=== PATIENT | male | born 1985 | race African-American/Black ===

== ENCOUNTER 2017-04-24 10:25 | Emergency (ER) | payer OTHER ==
[2017-04-24 10:38] VITALS: BP 121/73; PULSE 65; TEMP 98.3; BMI 24.4
[2017-04-24] MEDS ORDERED: FLUORESCEIN NA 1 EA STRIP OS ONE (10:54)
[2017-04-24] MEDS ORDERED: TETRACAINE 0.5% HCL 0.6ML DROPPER.BOTTLE OS ONE (10:54)
[2017-04-24] MEDS ORDERED: FLUORESCEIN NA 1 EA STRIP ONE (10:59)
[2017-04-24] MEDS ORDERED: TETRACAINE 0.5% OPHTH SOLN 2 ML BOTTLE ONE (10:59)
[2017-04-24] MEDS ORDERED: GENTAMICIN SULFATE 0.3% OPHTHALMIC (EYE DROPS) 5ML BOTTLE OD ONE (11:17)
[2017-04-24] MEDS ORDERED: GENTAMICIN SULFATE 0.3% OPHTHALMIC (EYE DROPS) 5ML BOTTLE ONE (11:20)
--- NOTE | 2017-04-24 11:21 | PDOC ---
History of Present Illness - General Chief Complaint: Eye Problem Stated Complaint: FORIEGN BODY TO LEFT EYE Time Seen by Provider: 04/24/17 10:54 - History of Present Illness Initial Comments: 04/24/17 11:22 Chief complaint: Irritation and redness left eye History of present illness: Patient was working on a ceiling yesterday, foreign material blew into his left eye. Today he complains of mild irritation and redness. Review of systems: Denies blurred vision, faisal pain, discharge or crusting. Remainder systems reviewed and negative Past medical history: Healthy male except for mild asthma which is controlled on an inhaler and which has not resulted in ER visits, hospitalizations, or necessitated steroid use in the past. Social history: No tobacco alcohol or nonprescription drugs fully active and without disability Family history reviewed and noncontributory including early coronary artery disease, metabolic disease including diabetes, neurological or ophthalmic disease Physical exam: Alert and oriented 3, well-developed well-nourished, no acute distress, cheerful and cooperative Afebrile, vital signs normal Left eye: Visual acuity intact at 20/20 bilaterally. Pupil 4 mm, round and reactive to light and accommodation. EOMs full. Visual maldonado intact to confrontation. Conjunctiva mildly injected laterally without limbal flush. Anterior chamber clear. Fundus benign. No uptake of stain with fluorescein. No foreign bodies visualized Impression: Probable superficial abrasion of the conjunctiva. The cornea is clear. Vision is not affected Plan: Antibiotic drops for 3 days. Recheck tag maker if symptoms persist. Patient fully ambulatory and in no discomfort upon discharge to follow-up as directed Past History - Past Medical History Allergies/Adverse Reactions: Allergies Allergy/AdvReac Type Severity Reaction Status Date / Time No Known Allergies Allergy Verified 04/24/17 10:26 Home Medications: Ambulatory Orders NK [No Known Home Medication] 04/24/17 Asthma: Yes - Immunization History Immunization Up to Date: No - Psycho/Social/Smoking Cessation Hx Anxiety: No Suicidal Ideation: No Smoking History: Never smoked Information on smoking cessation initiated: No Hx Alcohol Use: Yes (SOCIAL) Drug/Substance Use Hx: No Substance Use Type: Alcohol *Physical Exam - Vital Signs Last Vital Signs Temp Pulse Resp BP Pulse Ox 98.3 F 65 16 121/73 100 04/24/17 10:26 04/24/17 10:26 04/24/17 10:26 04/24/17 10:26 04/24/17 10:26 ED Treatment Course - Medications Given in the ED: ED Medications Discontinued Medications Generic Name Dose Route Start Last Admin Trade Name Estefania PRN Reason Stop Dose Admin Fluorescein Sodium 1 ea 04/24/17 10:54 04/24/17 10:59 Fluorets - OS 04/24/17 10:55 1 ea ONCE ONE Administration Tetracaine HCl 1 drop 04/24/17 10:54 04/24/17 10:59 Tetravisc 0.5% Eye Drops - OS 04/24/17 10:55 1 drop ONCE ONE Administration *DC/Admit/Observation/Transfer Diagnosis at time of Disposition: Eye injury, superficial Qualifiers: Encounter type: initial encounter Laterality: left Qualified Code(s): S05.8X2A - Other injuries of left eye and orbit, initial encounter - Discharge Dispostion Disposition: HOME Condition at time of disposition: Stable Admit: No - Referrals Referrals: Kashif Davis MD [Staff Physician] - 2 Days - Patient Instructions Additional Instructions: Warm compresses, eye drops 4 times daily as directed. If redness or irritation persists more than 1-2 days, see eye doctor for further evaluation and treatment as directed. If condition worsens or vision deteriorates, return to ER immediately. - Post Discharge Activity Work/School Note: Back to Work
== END 2017-04-24 11:29 | disposition home or self-care (01) ==
LOC: FER 10:25
DX: S05.8X2A Other injuries of left eye and orbit, initial encounter (principal); X58.XXXA Exposure to other specified factors, initial encounter; Y93.89 Activity, other specified; Y92.9 Unspecified place or not applicable; Y99.0 Civilian activity done for income or pay; J45.909 Unspecified asthma, uncomplicated
CPT/HCPCS: 99281-25

== ENCOUNTER 2017-07-15 07:56 | Day surgery (SDC) | payer OTHER ==
--- NOTE | 2017-07-15 08:47 | PDOC ---
History of Present Illness <Akilah Powers - Last Filed: 07/15/17 09:55> - General History Source: Patient Exam Limitations: No Limitations - History of Present Illness Initial Comments: 07/15/17 8:33 came for evaluation of left shoulder abscess / states is progressively worsened over the past 2 weeks. 07/15/17 09:33 Upon further evaluation and discussion, patient revealed prescription written by Dr. Young LANGE indicating patient's arrival to the emergency department and request for Dr. LANGE to be notified. After notification, stated patient was to come to emergency department for preop testing and preparation for surgical excision of this abscess. Patient was moved to the main emergency department, and Dr Black Occurred: reports: this morning Severity: reports: mild Pain Location: reports: none, upper extremity Modifying Factors: improves with: None Loss of Consciousness: no loss of consciousness <Ana Ferreira - Last Filed: 07/15/17 12:37> - General Chief Complaint: Abscess Boil Stated Complaint: ABCESS TO LEFT SHOULDER Time Seen by Provider: 07/15/17 08:24 Past History <Akilah Powers - Last Filed: 07/15/17 09:55> - Travel Traveled outside of the country in the last 30 days: No Close contact w/someone who was outside of country & ill: No - Past Medical History Asthma: Yes COPD: No - Immunization History Immunization Up to Date: No - Suicide/Smoking/Psychosocial Hx Smoking History: Never smoked Have you smoked in the past 12 months: No Information on smoking cessation initiated: No Hx Alcohol Use: Yes (SOCIAL) Drug/Substance Use Hx: No Substance Use Type: Alcohol <Ana Ferreira - Last Filed: 07/15/17 12:37> - Past Medical History Allergies/Adverse Reactions: Allergies Allergy/AdvReac Type Severity Reaction Status Date / Time No Known Allergies Allergy Verified 07/15/17 07:58 Home Medications: Ambulatory Orders NK [No Known Home Medication] 04/24/17 Review of Systems - Review of Systems Able to Perform ROS?: Yes Is the patient limited Uzbek proficient: Yes Constitutional: Yes: Symptoms Reported, See HPI, Fever, Malaise HEENTM: No: Symptoms Reported Respiratory: Yes: See HPI. No: Symptoms reported Integumentary: Yes: Symptoms Reported, See HPI, Lesions, Other <Ana Ferreira - Last Filed: 07/15/17 12:37> *Physical Exam - Vital Signs Last Vital Signs Temp Pulse Resp BP Pulse Ox 98.6 F 80 17 113/62 100 07/15/17 07:58 07/15/17 07:58 07/15/17 07:58 07/15/17 07:58 07/15/17 07:58 <Akilah Powers - Last Filed: 07/15/17 09:55> - Vital Signs Last Vital Signs Temp Pulse Resp BP Pulse Ox 98.6 F 80 17 113/62 100 07/15/17 07:58 07/15/17 07:58 07/15/17 07:58 07/15/17 07:58 07/15/17 07:58 <Ana Ferreira - Last Filed: 07/15/17 12:37> ED Treatment Course - Medications Given in the ED: ED Medications Discontinued Medications Generic Name Dose Route Start Last Admin Trade Name Estefania PRN Reason Stop Dose Admin Ibuprofen 600 mg 07/15/17 08:48 07/15/17 09:32 Motrin - PO 07/15/17 08:49 600 mg ONCE ONE Administration <Akilah Powers - Last Filed: 07/15/17 09:55> - LABORATORY CBC & Chemistry Diagram: 07/15/17 09:20 07/15/17 09:20 <Ana Ferreira - Last Filed: 07/15/17 12:37> *DC/Admit/Observation/Transfer - Discharge Dispostion Admit: Yes - Attestations Physician Attestion: 07/15/17 09:57 I, Dr. Akilah Powers MD, attest that this document has been prepared under my direction and personally reviewed by me in its entirety. I further attest, that it accurately reflects all work, treatment, procedures and medical decision -making performed by me. <Akilah Powers - Last Filed: 07/15/17 09:55> <Ana Ferreira - Last Filed: 07/15/17 12:37> Diagnosis at time of Disposition: Cyst - Discharge Dispostion Condition at time of disposition: Stable
[2017-07-15] MEDS ORDERED: IBUPROFEN 600 MG TABLET (FP) PO ONE ×2 (08:48→09:28)
[2017-07-15 10:11] LABS: BASOPHIL 0.8 % (0-2.0); EOSINOPHIL 1.9 % (0-4.5); MCH 27.4 pg (25.7-33.7); MCHC 33.4 g/dl (32.0-35.9); MEAN CELL VOLUME 82.1 fl (80-96); MEAN PLT VOLUME 6.9 fl (7.5-11.1); NEUTROPHILS 64.5 % (42.8-82.8); PLATELET COUNT 320 K/MM3 (134-434); RDW 14.1 % (11.9-15.9); WHITE BLOOD COUNT 9.2 K/mm3 (4.0-10.0)
--- NOTE | 2017-07-15 10:15 | PDOC ---
History of Present Illness <Akilah Powers - Last Filed: 07/15/17 10:15> - General History Source: Patient Exam Limitations: No Limitations - History of Present Illness Initial Comments: 07/15/17 10:15 32 y/o M with a PMHx of asthma, COPD presents to the ED with a right shoulder cyst that requires surgical removal. Cyst had drained a few weeks ago, but remains very painful and per Dr. Morales, needs removal in the OR. Patient was sent through the ER to the OR because of insurance issues. Pt reports chills last night but otherwise denies fevers, chest pain, sob, abd pain, n/v/d, weakness, headaches. <Aviva Zarate - Last Filed: 07/15/17 10:17> - General Chief Complaint: Abscess Boil Stated Complaint: ABCESS TO LEFT SHOULDER Time Seen by Provider: 07/15/17 08:24 Past History - Past Medical History Asthma: Yes COPD: No - Immunization History Immunization Up to Date: No - Suicide/Smoking/Psychosocial Hx Smoking History: Never smoked Have you smoked in the past 12 months: No Information on smoking cessation initiated: No Hx Alcohol Use: Yes (SOCIAL) Drug/Substance Use Hx: No Substance Use Type: Alcohol <Akilah Powers - Last Filed: 07/15/17 10:15> <Aviva Zarate - Last Filed: 07/15/17 10:17> - Past Medical History Allergies/Adverse Reactions: Allergies Allergy/AdvReac Type Severity Reaction Status Date / Time No Known Allergies Allergy Verified 07/15/17 07:58 Home Medications: Ambulatory Orders NK [No Known Home Medication] 04/24/17 Review of Systems - Review of Systems Is the patient limited Greenlandic proficient: Yes <Akilah Powers - Last Filed: 07/15/17 10:15> - Review of Systems Comments:: 07/15/17 10:16 GENERAL/CONSTITUTIONAL: +chills. No fever. No weakness. HEAD, EYES, EARS, NOSE AND THROAT: No change in vision. No ear pain or discharge. No sore throat. GASTROINTESTINAL: No nausea, vomiting, diarrhea or constipation. GENITOURINARY: No dysuria, frequency, or change in urination. CARDIOVASCULAR: No chest pain or shortness of breath. RESPIRATORY: No cough, wheezing, or hemoptysis. MUSCULOSKELETAL: No joint or muscle swelling or pain. No neck or back pain. SKIN: (+) right shoulder cyst. No rash NEUROLOGIC: No headache, vertigo, loss of consciousness, or change in strength/ sensation. ENDOCRINE: No increased thirst. No abnormal weight change. HEMATOLOGIC/LYMPHATIC: No anemia, easy bleeding, or history of blood clots. ALLERGIC/IMMUNOLOGIC: No hives or skin allergy. <Aviva Zarate - Last Filed: 07/15/17 10:17> *Physical Exam - Vital Signs Last Vital Signs Temp Pulse Resp BP Pulse Ox 98.6 F 80 17 113/62 100 07/15/17 07:58 07/15/17 07:58 07/15/17 07:58 07/15/17 07:58 07/15/17 07:58 <Akilah Powers - Last Filed: 07/15/17 10:15> - Vital Signs Last Vital Signs Temp Pulse Resp BP Pulse Ox 98.6 F 80 17 113/62 100 07/15/17 07:58 07/15/17 07:58 07/15/17 07:58 07/15/17 07:58 07/15/17 07:58 - Physical Exam Comments: 07/15/17 10:16 GENERAL: Awake, alert, and fully oriented, in no acute distress HEAD: No signs of trauma EYES: PERRLA, EOMI, sclera anicteric, conjunctiva clear ENT: Auricles normal inspection, hearing grossly normal, nares patent, oropharynx clear without exudates. Moist mucosa NECK: Normal ROM, supple, no lymphadenopathy, JVD, or masses LUNGS: Breath sounds equal, clear to auscultation bilaterally. No wheezes, and no crackles HEART: Regular rate and rhythm, normal S1 and S2, no murmurs, rubs or gallops ABDOMEN: Soft, nontender, normoactive bowel sounds. No guarding, no rebound. No masses EXTREMITIES: Normal range of motion, no edema. No clubbing or cyanosis. No cords, erythema. BACK: No midline spinal tenderness in cervical/thoracic/lumbar region NEUROLOGICAL: Normal speech, cranial nerves intact, negative pronator drift, 5/ 5 strength in all 4 extremities, normal sensation to light touch in all 4 extremities, normal cerebellar exam, normal gait, normal reflexes and tone SKIN: Round circumscribed 2x2 cm cyst with sebaceous material exiting from the cyst. +tenderness. No erythema, warmth. Otherwise, warm, dry, normal turgor, no rashes or lesions noted. <Aviva Zarate - Last Filed: 07/15/17 10:17> ED Treatment Course - LABORATORY CBC & Chemistry Diagram: 07/15/17 09:20 07/15/17 09:20 - ADDITIONAL ORDERS Additional order review: 07/15/17 09:20 RBC 5.15 MCV 82.1 MCHC 33.4 RDW 14.1 MPV 6.9 L Neutrophils % 64.5 Lymphocytes % 27.0 Monocytes % 5.8 Eosinophils % 1.9 Basophils % 0.8 - Medications Given in the ED: ED Medications Discontinued Medications Generic Name Dose Route Start Last Admin Trade Name Freq PRN Reason Stop Dose Admin Ibuprofen 600 mg 07/15/17 08:48 07/15/17 09:32 Motrin - PO 07/15/17 08:49 600 mg ONCE ONE Administration <Akilah Powers - Last Filed: 07/15/17 10:15> - LABORATORY CBC & Chemistry Diagram: 07/15/17 09:20 07/15/17 09:20 - ADDITIONAL ORDERS Additional order review: 07/15/17 09:20 RBC 5.15 MCV 82.1 MCHC 33.4 RDW 14.1 MPV 6.9 L Neutrophils % 64.5 Lymphocytes % 27.0 Monocytes % 5.8 Eosinophils % 1.9 Basophils % 0.8 - Medications Given in the ED: ED Medications Discontinued Medications Generic Name Dose Route Start Last Admin Trade Name Freq PRN Reason Stop Dose Admin Ibuprofen 600 mg 07/15/17 08:48 07/15/17 09:32 Motrin - PO 07/15/17 08:49 600 mg ONCE ONE Administration <Aviva Zarate - Last Filed: 07/15/17 10:17> *DC/Admit/Observation/Transfer - Discharge Dispostion Decision to Admit order Date/Time: Decision to Admit Order Category Date Time Status Decision to Admit to Hospital Routine Admission 07/15/17 09:57 Active <Akilah Powers - Last Filed: 07/15/17 10:15> - Attestations Scribe Attestion: 11/07/17 10:17 Documentation prepared by Aviva Zarate, acting as medical office worker for Akilah Powers MD. <Aviva Zarate - Last Filed: 07/15/17 10:17> Diagnosis at time of Disposition: Cyst - Discharge Dispostion Condition at time of disposition: Stable - Referrals Referrals: Niranjan Perez MD [Primary Care Provider] - - Patient Instructions - Post Discharge Activity
[2017-07-15 10:31] LABS: ALBUMIN 4.3 g/dl (3.4-5.0); ANION GAP 5 (8-16); BILIRUBIN,TOTAL 0.6 mg/dL (0.2-1.0); CALCIUM 8.7 mg/dL (8.5-10.1); CO2 30 mmol/L (21-32); CREATININE 0.9 mg/dL (0.7-1.3); GLUCOSE,RANDOM 97 mg/dL (74-106); SGOT/AST 15 U/L (15-37); SGPT/ALT 20 U/L (12-78)
[2017-07-15 10:32] LABS: ALK PHOS 82 U/L (45-117)
--- NOTE | 2017-07-15 10:47 | CONSULT ---
Consult Consult Specialty:: Surgery Reason for Consultation:: Left back/trapezius exophytic mass with pain and discharge - History of Present Illness History of Present Illness: 32 male presents to ER for left back/trapezius exophytic mass with pain and discharge Mass present x 1 month Pain worsened Had discharge from the mass prior - History Source History Provided By: Patient Limitations to Obtaining History: No Limitations - Alcohol/Substance Use Hx Alcohol Use: Yes (SOCIAL) - Smoking History Smoking history: Never smoked Have you smoked in the past 12 months: No Home Medications - Allergies Allergies/Adverse Reactions: Allergies Allergy/AdvReac Type Severity Reaction Status Date / Time No Known Allergies Allergy Verified 07/15/17 07:58 - Home Medications Home Medications: Ambulatory Orders NK [No Known Home Medication] 04/24/17 Family Disease History - Family Disease History Family History: Unremarkable Review of Systems - Review of Systems Constitutional: denies: Chills, Fever HENT: reports: No Symptoms Neck: reports: No Symptoms Cardiovascular: denies: Chest Pain Respiratory: denies: Cough Gastrointestinal: denies: Abdominal Pain Neurological: denies: Change in LOC Pain Intensity: 3 Physical Exam Vital Signs: Vital Signs Temperature 98.6 F 07/15/17 07:58 Pulse Rate 80 07/15/17 07:58 Respiratory Rate 17 07/15/17 07:58 Blood Pressure 113/62 07/15/17 07:58 O2 Sat by Pulse Oximetry (%) 100 07/15/17 07:58 Constitutional: Yes: Calm Neck: Yes: WNL Cardiovascular: Yes: Regular Rate and Rhythm Respiratory: Yes: CTA Bilaterally Gastrointestinal: Yes: Soft. No: Tenderness Musculoskeletal: Yes: Other (Left back/trapezius exophytic mass + tender No erythema + some brownish discharge) Neurological: Yes: Alert, Oriented Labs: CBC, BMP 07/15/17 09:20 07/15/17 09:20 Problem List - Problems (1) Mass on back Code(s): R22.2 - LOCALIZED SWELLING, MASS AND LUMP, TRUNK Assessment/Plan Left back/trapezius exophytic mass with pain and discharge For excision Possible drainage
[2017-07-15 10:49] LABS: INR 1.1 (0.82-1.09); PROTHROMBIN TIME (PATIENT) 12.4 SEC (9.98-11.88)
[2017-07-15 10:53] LABS: ACTIVATED PTT 35.1 SECONDS (26.9-34.4)
[2017-07-15 12:07] VITALS: BMI 24.0
[2017-07-15] MEDS ORDERED: MIDAZOLAM HCL 2 MG/2 ML SINGLE DOSE VIAL ONE ×2 (14:15→14:36)
[2017-07-15] MEDS ORDERED: LIDOCAINE 1%/EPI 1:100000 (50 ML MULTI DOSE VIAL) INF ONE ×2 (14:37)
[2017-07-15] MEDS ORDERED: ceFAZolin SODIUM 1 GM VIAL ONE (14:40)
[2017-07-15] MEDS ORDERED: POVIDONE-IODINE OINTMENT 10% - 28.4 GM TUBE ONE (14:56)
[2017-07-15] MEDS ORDERED: POVIDONE-IODINE OINTMENT 10% - 28.4 GM TUBE TP ONE (14:57)
--- NOTE | 2017-07-15 15:03 | OP ---
Operative Note - Note: Operative Date: 07/15/17 Pre-Operative Diagnosis: Left back/trapezius mass Operation: Excision of left trapezius/back mass Post-Operative Diagnosis: Same as Pre-op Surgeon: Young Morales Anesthesia: Local, MAC Specimens Removed: Left back/trapezius mass Estimated Blood Loss (mls): 5 Operative Report Dictated: Yes
[2017-07-15 15:45] VITALS: TEMP 98.9
[2017-07-15 16:36] VITALS: BP 143/65; PULSE 66
--- NOTE | 2017-07-15 19:58 | OP ---
DATE OF OPERATION: 07/15/2017 SURGEON: Samantha Morales M.D. PREOPERATIVE DIAGNOSIS: Left back/trapezius mass. POSTOPERATIVE DIAGNOSIS: Left back/trapezius mass. PROCEDURE: Excision of left trapezius/back mass. Size is approximately 3 cm x 3 cm in size. Mass is exophytic with brownish drainage coming from it. ANESTHESIA: MAC/local. REASON FOR THE PROCEDURE: This is a 32-year-old male who presents to the ER with an exophytic painful left trapezius/back mass. Because of this, he was consented for an excision of the left trapezius/back mass. Risks and benefits of the procedure were explained. These included bleeding, infection, injury to surrounding structures including nerve injury, vessel injury, muscle injury, other surrounding structures, wound dehiscence, prolonged wound healing, SC, DVT, PE, some of the complications. He understood and signed informed consent. DESCRIPTION OF PROCEDURE: Patient is placed in the right lateral decubitus position. The area was prepped and draped in the usual sterile fashion. Timeout was performed. MAC was given by anesthesia, local lidocaine with epinephrine was injected in the area. An elliptical incision was made around the exophytic mass. The mass was circumferentially dissected and transected at the base, sent off the field for both pathology as well as microbiology and culture. The wound was irrigated, hemostasis achieved, flaps were created in order to try and reapproximate the wound, 3-0 Vicryl was used to reapproximate the deep dermal layer, and 3-0 nylons were used in a horizontal mattress fashion to reapproximate the skin. Dressing was applied, patient tolerated the procedure well and was transferred to recovery room in stable condition. SAMANTHA MORALES M.D. [id number]
--- NOTE | 2017-07-17 13:09 | PATH ---
Surgical Pathology Report Patient Name: DARYL JUSTIN [facility]. Rec. #: [id number] /Age/Gender: 1985 (Age: 32) / M Account: [id number] Location: AMBULATORY SURG Taken: 07/15/2017 Received: 07/16/2017 Reported: 07/17/2017 Physicians: Young Morales M.D. Specimen(s) Received LEFT BACK MASS Clinical History Mass Final Diagnosis BACK MASS, LEFT, EXCISION: KERATOACANTHOMA. SURGICAL MARGINS ARE NEGATIVE. Electronically Signed Ruchi Akbar M.D. Gross Description Received in formalin labeled "left back mass," is a 3.0 x 1.3 cm brown, elliptical, unoriented portion of skin excised to depth of 1.0 cm. The epidermal surface displays a 1.3 x 1.1 cm cutaneous horn. The base is inked green and the specimen is serially sectioned. The specimen is entirely and sequentially submitted in 8 cassettes with the tips in cassettes 1 and 8. 07/16/2017 [facility]07/16/2017
== END 2017-07-15 16:35 | disposition home or self-care (01) ==
LOC: JERFT 07:56 → JER 07:56 → JASUSAT 09:57
PROVIDERS: ATTEND Surgery
PROC: 0HB6XZZ Excision of Back Skin, External Approach (ICD-10-PCS; 2017-07-15)
PROC: 0HQ6XZZ Repair Back Skin, External Approach (ICD-10-PCS; principal; 2017-07-15 16:30)
DX: D48.5 Neoplasm of uncertain behavior of skin (principal)
CPT/HCPCS: 36415; 80053; 85025; 85610; 85730; 86850; 86900; 86901; 87070; 87205; 88307-TC; 94760; 99284-25

== ENCOUNTER 2019-03-23 08:40 | Emergency (ER) | payer OTHER ==
[2019-03-23 08:45] VITALS: BP 119/75; PULSE 65; TEMP 98.8; BMI 24.0
[2019-03-23] MEDS ORDERED: FLUORESCEIN NA 1 EA STRIP OS ONE (09:00)
--- NOTE | 2019-03-23 09:00 | PDOC ---
History of Present Illness - General Chief Complaint: Foreign Body (FB) Stated Complaint: FOREIGN BODY IN LEFT EYE Time Seen by Provider: 03/23/19 08:46 - History of Present Illness Initial Comments: 03/23/19 09:20 33 years old with no significant past medical history patient is a agriculture manager. Had a tree branch hit his left eye. Complaining of foreign body sensation to his left eye. Mild pain persistent constant no photophobia feels like a gritty sensation in his eye no other injury sustained. Symptoms are mild to moderate persistent constant with no exacerbating or alleviating factors. Past History - Past Medical History Allergies/Adverse Reactions: Allergies Allergy/AdvReac Type Severity Reaction Status Date / Time No Known Allergies Allergy Verified 03/23/19 08:41 Home Medications: Ambulatory Orders Erythromycin 0.5% Eye Ointment [Erythromycin 0.5% Eye Ointment -] 1 applic OS QID 5 Days #1 tube 03/23/19 Asthma: Yes COPD: No - Immunization History Immunization Up to Date: No - Suicide/Smoking/Psychosocial Hx Smoking History: Never smoked Have you smoked in the past 12 months: No Hx Alcohol Use: Yes (occasional) Drug/Substance Use Hx: No Substance Use Type: Alcohol Review of Systems - Review of Systems Comments:: 03/23/19 09:20 ROS: A complete review of 10 out of 10 review of systems is taken and is negative apart from what is previously mentioned below and in the HPI. *Physical Exam - Vital Signs Last Vital Signs Temp Pulse Resp BP Pulse Ox 98.8 F 65 18 119/75 100 03/23/19 08:41 03/23/19 08:41 03/23/19 08:41 03/23/19 08:41 03/23/19 08:41 - Physical Exam Comments: 03/23/19 09:20 Vitals: Triage Vital signs reviewed General Appearance: no acute distress, well nourished well developed, Head: Atraumatic, Eyes: Pupils equal reactive round, extraocular movement intact, visual acuity 20 /25 bilaterally, floor seen examination small corneal abrasion to left lower cornea. No foreign body noted Nose: Nares patent bilaterally;no nasal congestion Psych: normal mood, normal affect Medical Decision Making - Medical Decision Making 03/23/19 09:21 Corneal abrasion on examination no foreign body noted patient does not wear contact lenses we'll prescribe antibiotic ophthalmic drop and ophthalmology follow-up Findings, the need for follow-up and strict return instructions discussed with patient. *DC/Admit/Observation/Transfer Diagnosis at time of Disposition: Corneal abrasion Qualifiers: Encounter type: initial encounter Laterality: left Qualified Code(s): S05.02XA - Injury of conjunctiva and corneal abrasion without foreign body, left eye, initial encounter - Discharge Dispostion Disposition: HOME Condition at time of disposition: Stable Decision to Admit order: No - Prescriptions Prescriptions: Erythromycin 0.5% Eye Ointment [Erythromycin 0.5% Eye Ointment -] 1 applic OS QID 5 Days #1 tube - Referrals Referrals: Kashif Davis MD [Staff Physician] - - Patient Instructions Printed Discharge Instructions: DI for Corneal Abrasion Additional Instructions: Apply half inch of ointment to left eye 4 times a day for 5 days follow-up with Dr. alfredo ophthalmology within 1-2 days return to the ED for any severe worsening symptoms or for any concerns. For comfort using [id number] lubricating eyedrop as directed on package. - Post Discharge Activity Forms/Work/School Notes: Back to Work
[2019-03-23] MEDS ORDERED: FLUORESCEIN NA 1 EA STRIP ONE (09:10)
== END 2019-03-23 09:40 | disposition home or self-care (01) ==
LOC: FER 08:40
DX: S05.02XA Injury of conjunctiva and corneal abrasion without foreign body, left eye, initial encounter (principal); J45.909 Unspecified asthma, uncomplicated
CPT/HCPCS: 99281-25